=== PATIENT | female | born 1960 | race Caucasian/White ===

== ENCOUNTER 2018-08-10 11:35 | Outpatient (CLI) | payer MEDICARE, OTHER ==
[2016-09-17 00:59] VITALS: BP 108/68
--- NOTE | 2018-08-10 17:46 | Diagnostic Imaging Report ---
GENARO HINTON (BOBBI) - OP [facility] [address] [facility] [address] [address] Report Submission Date: Aug 10, 2018 12:00:09 PM EVENT OPERATIONS MANAGER Patient Study Name: AMAURY DELGAOD Date: Aug 10, 2018 11:37:12 AM EVENT OPERATIONS MANAGER Modality Type: DX Gender: F Description: CHEST : 64 Institution: [facility] Physician: GENARO HINTON (BOBBI) - OP Examination: PA and lateral chest. History: Evaluate lung conteh. PT STATES CHEST PAIN IN R LUNG X 4 DAYS. PT HAS BEEN A SMOKER X 40 YEARS. (Hx) Comparison exam: 16 September 2016 Findings: PA and lateral views of the chest demonstrates a normal cardiac and mediastinal silhouette. Chronic interstitial changes. No focal infiltrate. No blunting of the costophrenic margins. Osseous structures are appropriate for age. Impression: Chronic interstitial changes. No acute pulmonary process. Electronically signed on Aug 10, 2018 12:00:09 PM EVENT OPERATIONS MANAGER by: Ronnie BROWN
== END 2018-08-10 11:36 ==
LOC: RAD 11:35
PROVIDERS: ATTEND Nurse Practitioner Family
DX: R06.2 Wheezing (principal); R05 Cough; R09.81 Nasal congestion
CPT/HCPCS: 71046